=== PATIENT | female | born 1935 | race Caucasian/White ===

== ENCOUNTER → 2016-12-09 | Outpatient (CLI) | payer MEDICARE, OTHER | LOC: GMAB 10:34 | PROVIDERS: ATTEND Family Medicine | DX: I10 Essential (primary) hypertension (principal) ==

== ENCOUNTER → 2017-01-23 | Outpatient (CLI) | payer MEDICARE, OTHER ==
--- NOTE | 2017-01-26 07:56 | MAM ---
History: Well woman exam. Date of exam: 01/23/2017 Services provided: Bilateral full field digital screening mammography. CAD, the images were reviewed with R2 computer aided detection. FINDINGS: Glandular tissue is scattered glandular contour. Today's exam is compared with 2016 and 2010 examinations. Segmental calcifications right breast upper outer quadrant has slightly increased. Scattered glandular contour. No mammographic abnormality on the left. IMPRESSION: Incomplete exam Recommendation: True lateral view right breast with spot magnification films in the true lateral and craniocaudal projections to further define microcalcifications. BIRAD CATEGORY: 0 INCOMPLETE Electronically signed by: Noris Mcnair MD 01/26/2017 7:56 AM CDT
== END | disposition home or self-care (01) ==
LOC: MAMMO 10:01
PROVIDERS: ATTEND Family Medicine
DX: Z12.31 Encounter for screening mammogram for malignant neoplasm of breast (principal)

== ENCOUNTER → 2017-02-12 | Outpatient (CLI) | payer MEDICARE, OTHER ==
--- NOTE | 2017-02-12 15:33 | MAM ---
History: Microcalcifications right breast. DATE OF SERVICE: 02/12/2017 Services provided: Full field digital diagnostic right mammography. FINDINGS: True lateral film with spot compression magnification views in the true lateral and craniocaudal projections are obtained and compared with studies dating back to 2010. In this 81-year-old the segmental microcalcifications are better appreciated on the magnification views but essentially stable in distribution and appearance since the 2011 study. The likelihood that this represents significant disease at this time is not felt to be high, although potential for low-grade disease is difficult to exclude. There is no associated soft tissue mass or distortion. The glandular tissue has stable distribution since 2010. IMPRESSION: Probably benign exam. Mammographic findings remain stable and unchanged since 2010, although better demonstrated with improved technology. Recommendation: Six month mammographic follow-up right breast with routine and true lateral views and magnification films. Physical exam by surgery may also be appropriate. BIRAD CATEGORY: 3 PROBABLY BENIGN Electronically signed by: Noris Mcnair MD 02/12/2017 3:23 PM CDT
== END ==
LOC: MAMMO 14:26
PROVIDERS: ATTEND Family Medicine
DX: R92.8 Other abnormal and inconclusive findings on diagnostic imaging of breast (principal)

== ENCOUNTER → 2017-12-22 | Outpatient (CLI) | payer MEDICARE, OTHER | LOC: GMAB 11:59 | PROVIDERS: ATTEND Family Medicine | DX: I10 Essential (primary) hypertension (principal) ==

== ENCOUNTER → 2018-02-15 | Outpatient (CLI) | payer MEDICARE, OTHER ==
--- NOTE | 2018-02-17 13:36 | MAM ---
EXAM DESCRIPTION: 3D Diagnostic, Bilateral: Digital Mammography CLINICAL HISTORY: 83 yearsFemaleABNORMAL MAMMOGRAM . Patient did not return for six-month follow-up of calcifications in the right breast. No complaints. No family history breast cancer. Postmenopausal. No HRT. COMPARISON: 2-D digital screening bilateral study 01/23/2017. 2-D diagnostic digital right breast mammography 02/12/2017.. Reports from prior examinations also reviewed. TECHNIQUE: Bilateral CC LM MLO projection full-field images, 3-D tomosynthesis digital mammographic technique. Also bilateral synthesized CC MLO LM full-field images. 2-D spot magnification of the region of interest in the right breast. CAD utilized for 2-D imaging. FINDINGS: The breast parenchymal density pattern is: Scattered areas of fibroglandular density. No skin thickening or nipple retraction bilateral linear and round microcalcifications which are mostly solitary and confined to the anterior two thirds of both breasts. More numerous on the right. More heterogeneous in the upper outer quadrant. Bilateral axillary lymph nodes. No focal, stellate mass or density, focal asymmetry , and no suspicious microcalcifications left breast. Stable mammograms compared to prior study, taking into account differences in mammographic technique IMPRESSION: BI-RADS CATEGORY: 3 - PROBABLY BENIGN. Management: Short interval (6-month) follow-up diagnostic digital mammography right breast. Written communication explaining the IMPRESSION and follow-up will be mailed to the patient and referring care provider Electronically signed by: Duarte Bhagat MD 02/17/2018 1:35 PM CDT
== END ==
LOC: MAMMO 09:00
PROVIDERS: ATTEND Family Medicine
DX: R92.8 Other abnormal and inconclusive findings on diagnostic imaging of breast (principal)
CPT/HCPCS: 77066; G0279

== ENCOUNTER → 2018-08-27 | Outpatient (CLI) | payer MEDICARE, OTHER ==
--- NOTE | 2018-08-30 16:31 | MAM ---
EXAM DESCRIPTION: 3D Diagnostic, Right: Digital Mammography CLINICAL HISTORY: 83 yearsFemaleABNORMAL MAMMO follow-up breast calcifications lateral right breast.. COMPARISON: Bilateral diagnostic digital breast tomosynthesis 02/15/2018.. . TECHNIQUE: Right LM projection full-field images, digital mammographic tomosynthesis technique. Bilateral right breast digital magnification MLO and CC projections. CAD not utilized. FINDINGS: The breast parenchymal density pattern is: Scattered areas of fibroglandular density. No skin thickening or nipple retraction multiple secretory calcifications in the lateral right breast anterior mid third. Also punctate micro-calcifications. These are stable since the prior study. No new focal, stellate mass or density, focal asymmetry right breast. IMPRESSION: BI-RADS CATEGORY: 3 - PROBABLY BENIGN. Management: Short interval (6-month) follow-up right breast digital breast tomosynthesis with special magnification digital images.. The FINDINGS and the FOLLOW-UP plan were reviewed in person with the patient after the examination. Written communication explaining the IMPRESSION and FOLLOW-UP will be mailed to the patient and referring care provider. Electronically signed by: Duarte Bhagat MD 08/30/2018 4:30 PM [facility]
== END ==
LOC: MAMMO 11:00
PROVIDERS: ATTEND Family Medicine
DX: R92.2 Inconclusive mammogram (principal)
CPT/HCPCS: 77065; G0279

== ENCOUNTER 2018-08-30 05:43 | Day surgery (SDC) | payer MEDICARE, OTHER ==
[2018-08-30] MEDS ORDERED: TROP 1%/CYCLOPEN 1%/PHENYL 2% DROPS OPHTH ONE (05:44)
[2018-08-30] MEDS ORDERED: MIDAZOLAM INJ 2 MG/2 ML VIAL ONE (12:05)
[2018-08-30] MEDS ORDERED: PROPARACAINE 0.5% OPHTH SOL 15 ML BTTL LEFT_EYE ONE (12:20)
[2018-08-30] MEDS ORDERED: DEXAMETHASONE 0.1% OPHTH SOL 1 DROP LEFT_EYE ONE ×2 (12:29→12:38)
[2018-08-30] MEDS ORDERED: LIDOCAINE 1% 2 ML VIAL INJ ONE (12:29)
[2018-08-30] MEDS ORDERED: BRIMONIDINE 0.2% OPHTH DROPS LEFT_EYE ONE ×2 (12:30→12:38)
[2018-08-30] MEDS ORDERED: TOBRAMYCIN SULF 0.3 % OPHT SOL 1 DROP LEFT_EYE ONE ×2 (12:30→12:38)
== END 2018-08-30 13:25 | disposition home or self-care (01) ==
LOC: AMB 05:43
PROVIDERS: ATTEND Ophthalmology
DX: H25.12 Age-related nuclear cataract, left eye (principal); I10 Essential (primary) hypertension; I25.10 Atherosclerotic heart disease of native coronary artery without angina pectoris; E66.9 Obesity, unspecified; Z79.899 Other long term (current) drug therapy
CPT/HCPCS: 00142; 66984; J2250

== ENCOUNTER 2018-09-13 05:43 | Day surgery (SDC) | payer MEDICARE, OTHER ==
[2018-09-13] MEDS ORDERED: TROP 1%/CYCLOPEN 1%/PHENYL 2% DROPS ONE (06:00)
[2018-09-13] MEDS ORDERED: PROPARACAINE 0.5% OPHTH SOL 15 ML BTTL ONE (06:00)
[2018-09-13] MEDS ORDERED: MIDAZOLAM INJ 2 MG/2 ML VIAL ONE (06:39)
[2018-09-13] MEDS ORDERED: LIDOCAINE 1% MPF 5 ML VIAL INJ ONE (09:00)
[2018-09-13] MEDS ORDERED: BRIMONIDINE 0.2% OPHTH DROPS RIGHT_EYE ONE ×2 (09:04→09:14)
[2018-09-13] MEDS ORDERED: DEXAMETHASONE 0.1% OPHTH SOL 1 DROP RIGHT_EYE ONE ×2 (09:04→09:14)
[2018-09-13] MEDS ORDERED: TOBRAMYCIN SULF 0.3 % OPHT SOL 1 DROP RIGHT_EYE ONE ×2 (09:04→09:14)
== END 2018-09-13 09:51 | disposition home or self-care (01) ==
LOC: AMB 05:43
PROVIDERS: ATTEND Ophthalmology
DX: H26.9 Unspecified cataract (principal); I10 Essential (primary) hypertension; K21.9 Gastro-esophageal reflux disease without esophagitis; G62.9 Polyneuropathy, unspecified
CPT/HCPCS: 00142; 66984; J2250

== ENCOUNTER → 2018-12-27 | Outpatient (CLI) | payer MEDICARE | LOC: GMAE 11:03 | PROVIDERS: ATTEND Family Medicine | DX: I10 Essential (primary) hypertension (principal); E78.2 Mixed hyperlipidemia ==

== ENCOUNTER → 2019-05-18 | Outpatient (CLI) | payer MEDICARE ==
--- NOTE | 2019-05-20 16:13 | MAM ---
EXAM DESCRIPTION: 3D Diagnostic, Bilateral: Digital Mammography CLINICAL HISTORY: 84 [id number] STUDY groups of calcifications in the middle third, central and lateral left breast. No personal or family history of breast cancer. Childbirth. Postmenopausal. No HRT Lifetime risk of developing breast cancer (Tyrer-Cuzick model) percentage is 1.9. COMPARISON: Right diagnostic digital breast tomosynthesis 08/27/2018. Bilateral diagnostic digital breast tomosynthesis 02/15/2018... TECHNIQUE: Bilateral LM, CC, and MLO projection full-field images, digital mammographic tomosynthesis technique. Bilateral 2-D digital full-field MLO, CC, and LM images. 2-D spot magnification middle third upper outer right breast, LM and CC projections. CAD not available. FINDINGS: The breast parenchymal density pattern is: Scattered areas of fibroglandular density. No skin thickening or nipple retraction breast calcifications again seen in the right breast middle third and predominantly upper outer quadrant. These are secretory type calcifications. There are also bilateral solitary microcalcifications. Bilateral axillary lymph nodes. No new focal, stellate mass or density, focal asymmetry , and no suspicious microcalcifications bilaterally. Stable mammograms compared to prior study, taking into account differences in mammographic technique IMPRESSION: Benign exam. BIRAD CATEGORY: 2 BENIGN FINDINGS. RECOMMENDATIONS: FOLLOW UP: Return to routine digital bilateral mammographic screening, one year interval from May 2019. Written communication explaining the IMPRESSION and follow-up, will be mailed to the patient and referring health care provider. The FINDINGS and the FOLLOW-UP plan were reviewed in person with the patient after the examination. According to the [employer], yearly mammograms are recommended starting at age 40 and continuing as long as a woman is in good health. Any breast change noted on a breast self-exam should be reported promptly to the patient's healthcare provider. Breast MRI is recommended for women with an approximately 20-25% or greater lifetime risk of breast cancer, including women with a strong family history of breast or ovarian cancer and women who have been treated for Hodgkin's disease. A negative mammographic report should not delay tissue diagnosis in patients with significant clinical history or physical findings. Extremely dense breast tissue limits the sensitivity of digital mammography. Electronically signed by: Duarte Bhagat MD 05/20/2019 4:11 PM CDT
== END ==
LOC: US 09:00
PROVIDERS: ATTEND Family Medicine
DX: R92.2 Inconclusive mammogram (principal)
CPT/HCPCS: 77066; G0279

== ENCOUNTER → 2019-08-12 | Outpatient (CLI) | payer MEDICARE ==
[~2019-08-12] MED LIST: ALBUTEROL SULFATE 2.5 MG/3 ML VIAL NEB ONE
[2019-08-12 15:17] VITALS: O2SAT 66
== END ==
LOC: RESP 13:09
PROVIDERS: ATTEND Family Medicine
DX: R06.02 Shortness of breath (principal)
CPT/HCPCS: 94060; J7611

== ENCOUNTER → 2020-02-21 | Outpatient (CLI) | payer MEDICARE | LOC: GMAE 10:53 | PROVIDERS: ATTEND Family Medicine | DX: I10 Essential (primary) hypertension (principal); E78.2 Mixed hyperlipidemia ==